=== PATIENT | female | born 1995 | race Caucasian/White ===

== ENCOUNTER 2018-05-21 08:32 | Emergency (ER) | payer MEDICAID ==
[2016-03-19 13:07] VITALS: Wt 54.0 kg
[~2018-05-21 08:32] MED LIST: CEPH-13 PO; CHOL10005 PO; HYDR25CA83 PO; MIRT-1 PO; MULT-859 PO; OMEG500C7 PO; ONDA4TAB9 PO; PROM-110 PO; VALA500T66 PO; depo shot IM
--- NOTE | 2018-05-21 08:36 | ER Report ---
History and Physical Time Seen By : 08:35 HPI/ROS CHIEF COMPLAINT: Abdominal pain HISTORY OF PRESENT ILLNESS: Patient is a 22-year-old female who is status post a laparoscopic cholecystectomy that was performed approximately 7 days ago in [place]. She states that that time she's had low-grade fevers. She is taking oxycodone for pain and Zofran for nausea. She reports today developing increased right-sided flank pain along with increased urinary frequency but no dysuria. She denies any vaginal discharge. She describes the pain as 7 out of 10 in intensity. She states she's had a history of pyelonephritis recently and was treated approximate 1 week prior to her surgery. She does state that the pain feels somewhat similar. She does report some shortness of breath secondary to pain with deep inspiration along the right flank. REVIEW OF SYSTEMS: Constitutional: Fevers, chills Eyes: No discharge. ENT: No sore throat. Cardiovascular: No chest pain, no palpitations. Respiratory: No cough, no shortness of breath. Gastrointestinal: Right lower quadrant abdominal pain; para emboli could pain, right flank pain Genitourinary: No hematuria, increased urinary frequency and pressure no dysuria Musculoskeletal: Right flank pain Skin: No rashes. Neurological: No headache. Allergies: Coded Allergies: Penicillins (Unverified Allergy, Unknown, 03/18/16) Home Meds Active Scripts Oxycodone Hcl/Acetaminophen (PERCOCET 5-325 MG TABLET) 1 Each Tablet, 1 EACH PO Q4H for PAIN, #15 TAB 0 Refills Prov:RESHMA HAAS MD 05/21/18 Ondansetron Hcl (ZOFRAN) 4 Mg Tablet, 4 MG PO Q8H for Nausea, #15 TAB 0 Refills Prov:RESHMA HAAS MD 05/21/18 Reported Medications Hydroxyzine Pamoate (VISTARIL) 25 Mg Capsule, 1-2 CAP PO Q6H Y for ANXIETY, # 120 CAPSULE 03/21/16 Cholecalciferol (Vitamin D3) (VITAMIN D3) 1,000 Unit Tablet, 1000 UNIT PO QDAY, TAB 03/21/16 Multivits,Ca,Minerals/Iron/Fa (THERA-M TABLET) 1 Each Tablet, 1 EACH PO QDAY 03/21/16 Mirtazapine (REMERON) 15 Mg Tablet, 15 MG PO QHS, #30 Take 1 hour before intention to sleep 03/21/16 [place]-3 Fatty Acids (FISH OIL) 500 Mg Capsule, 500 MG PO QDAY, CAPSULE 03/21/16 [depo shot] No Conflict Check, IM 03/19/16 Discontinued Reported Medications Cephalexin (KEFLEX) 500 Mg Capsule, 500 MG PO Q6H, #8 CAP 03/21/16 Past Medical/Surgical History Past medical history for miscarriage, history of depression with suicidal ideation and inpatient admission. Hx Smoking: Yes Smoking Status: Current: Every Day Smoker Exposure to Second Hand Smoke?: No Hx Substance Use Disorder: No Hx Alcohol Use: Yes Constitutional Vital Sign - Last 24 Hours 05/21/18 05/21/18 05/21/18 05/21/18 08:36 08:45 09:00 09:30 Temp 98.3 Pulse 72 83 81 ??? Resp 18 29 12 B/P (MAP) 105/68 108/72 (84) Pulse Ox 98 97 95 O2 Delivery Room Air 05/21/18 05/21/18 05/21/18 05/21/18 09:32 09:45 10:00 10:15 Pulse 96 88 90 Resp 17 17 18 B/P (MAP) 114/75 (88) 90/64 (73) Pulse Ox 97 84 97 05/21/18 10:30 Pulse 88 Intake and Output 05/21/18 05/21/18 05/22/18 14:59 22:59 06:59 Intake Total 1000 ml Balance 1000 ml Physical Exam General/Constitutional: Patient is awake, alert, nontoxic and in no acute respiratory distress. Head: Normocephalic and atraumatic. Eyes: Conjunctival clear, Pupils are equal and reactive to light. Extraocular muscles are intact and symmetrical. Sclera are clear and anicteric. Oropharyngeal: Mucous membranes are moist. There is no pharyngeal erythema or exudate. There are no palatal petechiae. Uvula is midline and symmetrical. Neck: Supple, no adenopathy. Cardiovascular: Heart is regular rate and rhythm without audible murmurs, rubs or gallops. Pulmonary: Lungs are clear to auscultation bilaterally. There are no wheezes, rales, or rhonchi. Chest rise is symmetrical Abdomen: Right lower quadrant abdominal pain., Right flank pain and CVA tenderness. Periumbilical pain. Incisions look clean dry and intact without evidence of erythema or discharge. Extremities: No gross deformities, No peripheral cyanosis. Able to move all 4 extremities. Neuro: Alert and oriented X3, Skin: No rashes, skin is warm dry and well perfused. Medical Decision Making Data Points Result Diagram: 05/21/18 0844 05/21/18 0844 Laboratory Hematology Test 05/21/18 08:35 05/21/18 08:44 Urine Color Yellow Urine Clarity Slightly-cloudy Urine pH 5.0 pH (4.8-9.5) Urine Specific [place] 1.020 Urine Protein Negative mg/dL (NEGATIVE) Urine Glucose (UA) Negative mg/dL (NEGATIVE) Urine Ketones Negative mg/dL (NEGATIVE) Urine Blood Negative (NEGATIVE) Urine Nitrite Negative (NEGATIVE) Urine Bilirubin Negative (NEGATIVE) Urine Urobilinogen Negative mg/dL (0.2-1.9) Urine Leukocyte Esterase Negative (NEGATIVE) Urine RBC None /HPF (0-2/HPF) Urine WBC 2 /HPF (0-5/HPF) Urine Squamous Epithelial Cells Many /LPF (</=FEW) Urine Bacteria Negative /HPF (NONE-FEW) Urine Mucus Few /HPF (NONE-FEW) Red Blood Count 4.69 M/uL (4.17-5.56) Mean Corpuscular Volume 91.7 fL (80.0-96.0) Mean Corpuscular Hemoglobin 31.6 pg (26.0-33.0) Mean Corpuscular Hemoglobin Concent 34.5 g/dL (32.0-36.0) Red Cell Distribution Width 13.3 % (11.5-14.5) Mean Platelet Volume 7.6 fL (7.2-11.1) Neutrophils (%) (Auto) 70.8 % (39.4-72.5) Lymphocytes (%) (Auto) 20.8 % (17.6-49.6) Monocytes (%) (Auto) 6.3 % (4.1-12.4) Eosinophils (%) (Auto) 1.3 % (0.4-6.7) Basophils (%) (Auto) 0.8 % (0.3-1.4) Nucleated RBC Relative Count (auto) 0.0 /100WBC Neutrophils # (Auto) 5.9 K/uL (2.0-7.4) Lymphocytes # (Auto) 1.7 K/uL (1.3-3.6) Monocytes # (Auto) 0.5 K/uL (0.3-1.0) Eosinophils # (Auto) 0.1 K/uL (0.0-0.5) Basophils # (Auto) 0.1 K/uL (0.0-0.1) Nucleated RBC Absolute Count (auto) 0.00 K/uL Sodium Level 139 mmol/L (137-145) Potassium Level 4.1 mmol/L (3.5-5.0) Chloride Level 102 mmol/L (98-107) Carbon Dioxide Level 26 mmol/L (22-31) Blood Urea Nitrogen 13 mg/dl (7-18) Creatinine 0.70 mg/dl (0.52-1.04) Glomerular Filtration Rate Calc > 60.0 Random Glucose 92 mg/dl (75-110) Calcium Level 9.5 mg/dl (8.4-10.2) Total Bilirubin 0.6 mg/dl (0.2-1.3) Aspartate Amino Transf (AST/SGOT) 48 U/L (0-35) Alanine Aminotransferase (ALT/SGPT) 94 U/L (0-56) Alkaline Phosphatase 97 U/L (0-126) Total Protein 7.8 g/dl (6.3-8.2) Albumin 4.6 g/dl (3.5-5.0) Lipase 33 U/L (23-300) Human Chorionic Gonadotropin, Qual Negative (NEGATIVE) Chemistry Test 05/21/18 08:35 05/21/18 08:44 Urine Color Yellow Urine Clarity Slightly-cloudy Urine pH 5.0 pH (4.8-9.5) Urine Specific [place] 1.020 Urine Protein Negative mg/dL (NEGATIVE) Urine Glucose (UA) Negative mg/dL (NEGATIVE) Urine Ketones Negative mg/dL (NEGATIVE) Urine Blood Negative (NEGATIVE) Urine Nitrite Negative (NEGATIVE) Urine Bilirubin Negative (NEGATIVE) Urine Urobilinogen Negative mg/dL (0.2-1.9) Urine Leukocyte Esterase Negative (NEGATIVE) Urine RBC None /HPF (0-2/HPF) Urine WBC 2 /HPF (0-5/HPF) Urine Squamous Epithelial Cells Many /LPF (</=FEW) Urine Bacteria Negative /HPF (NONE-FEW) Urine Mucus Few /HPF (NONE-FEW) White Blood Count 8.4 k/uL (4.5-11.0) Red Blood Count 4.69 M/uL (4.17-5.56) Hemoglobin 14.8 g/dL (12.0-16.0) Hematocrit 43.0 % (34.0-47.0) Mean Corpuscular Volume 91.7 fL (80.0-96.0) Mean Corpuscular Hemoglobin 31.6 pg (26.0-33.0) Mean Corpuscular Hemoglobin Concent 34.5 g/dL (32.0-36.0) Red Cell Distribution Width 13.3 % (11.5-14.5) Platelet Count 245 K/uL (150-450) Mean Platelet Volume 7.6 fL (7.2-11.1) Neutrophils (%) (Auto) 70.8 % (39.4-72.5) Lymphocytes (%) (Auto) 20.8 % (17.6-49.6) Monocytes (%) (Auto) 6.3 % (4.1-12.4) Eosinophils (%) (Auto) 1.3 % (0.4-6.7) Basophils (%) (Auto) 0.8 % (0.3-1.4) Nucleated RBC Relative Count (auto) 0.0 /100WBC Neutrophils # (Auto) 5.9 K/uL (2.0-7.4) Lymphocytes # (Auto) 1.7 K/uL (1.3-3.6) Monocytes # (Auto) 0.5 K/uL (0.3-1.0) Eosinophils # (Auto) 0.1 K/uL (0.0-0.5) Basophils # (Auto) 0.1 K/uL (0.0-0.1) Nucleated RBC Absolute Count (auto) 0.00 K/uL Glomerular Filtration Rate Calc > 60.0 Calcium Level 9.5 mg/dl (8.4-10.2) Total Bilirubin 0.6 mg/dl (0.2-1.3) Aspartate Amino Transf (AST/SGOT) 48 U/L (0-35) Alanine Aminotransferase (ALT/SGPT) 94 U/L (0-56) Alkaline Phosphatase 97 U/L (0-126) Total Protein 7.8 g/dl (6.3-8.2) Albumin 4.6 g/dl (3.5-5.0) Lipase 33 U/L (23-300) Human Chorionic Gonadotropin, Qual Negative (NEGATIVE) Urinalysis Test 05/21/18 08:35 Urine Color Yellow Urine Clarity Slightly-cloudy Urine pH 5.0 pH (4.8-9.5) Urine Specific [place] 1.020 Urine Protein Negative mg/dL (NEGATIVE) Urine Glucose (UA) Negative mg/dL (NEGATIVE) Urine Ketones Negative mg/dL (NEGATIVE) Urine Blood Negative (NEGATIVE) Urine Nitrite Negative (NEGATIVE) Urine Bilirubin Negative (NEGATIVE) Urine Urobilinogen Negative mg/dL (0.2-1.9) Urine Leukocyte Esterase Negative (NEGATIVE) Urine RBC None /HPF (0-2/HPF) Urine WBC 2 /HPF (0-5/HPF) Urine Squamous Epithelial Cells Many /LPF (</=FEW) Urine Bacteria Negative /HPF (NONE-FEW) Urine Mucus Few /HPF (NONE-FEW) EKG/Imaging Imaging FACILITY: [facility] PATIENT NAME: Alena Conti : 1995 MR: [id number] V: [id number] EXAM DATE: [id number] ORDERING PHYSICIAN: RESHMA HAAS TECHNOLOGIST: Location: [facility] Patient: Alena Conti : 1995 Visit/Account:[id number] Date of Sevice: 05/21/2018 Chest 2 views: HISTORY: Shortness of breath. Smoker. Gallbladder removed last week. COMPARISON: None. FINDINGS: Frontal and lateral chest: Cardiomediastinal silhouette is within normal limits. There is no infiltrate or pleural effusion. No pneumothorax. Pulmonary vasculature is normal. Surgical clips are present in the right upper quadrant. There is no free air identified under the hemidiaphragms. Osseous structures are unremarkable. IMPRESSION: No evidence of acute cardiopulmonary abnormality. Report Dictated By: Mary Martinez MD at 05/21/2018 9:29 AM Report E-Signed By: Mary Martinez MD at 05/21/2018 9:47 AM WSN:[id number] FACILITY: [facility] PATIENT NAME: Alena Conti : 1995 MR: [id number] V: [id number] EXAM DATE: [id number] ORDERING PHYSICIAN: RESHMA HAAS TECHNOLOGIST: Location: [facility] Patient: Alena Conti : 1995 Visit/Account:[id number] Date of Sevice: 05/21/2018 ABDOMEN/PELVIS WITH CONTRAST HISTORY: Postop cholecystectomy now with right flank and periumbilical pain. TECHNIQUE: CT abdomen and pelvis with intravenous contrast. One of the following dose optimization techniques was utilized in the performance of this exam: Automated exposure control; adjustment of the mA and/ or kV according to the patient's size; or use of an iterative reconstruction technique. Specific details can be referenced in the facility's radiology CT exam operational policy. CONTRAST: 75 mL Isovue-370 IV COMPARISON: None. FINDINGS: Visualized lung bases: Negative. Hepatobiliary: Gallbladder surgically absent. Cholecystectomy clips and small volume fluid within gallbladder fossa. No organized fluid collection. Mild central intrahepatic and extrahepatic biliary dilatation, tapering distally to the level of papilla and likely physiologic postcholecystectomy. Spleen: Negative. Adrenals: Negative. Pancreas: Negative. Kidneys/: 5.2 cm low attenuating cyst right ovary. GI: No obstruction, wall thickening or surrounding inflammation. Appendix well- visualized and appears normal. Vessels/spaces/nodes: Trace free pelvic fluid, likely physiologic or secondary to partial right ovarian cyst rupture. Bones/soft tissues: Subtle foci of subcutaneous fat stranding within right upper quadrant. Fat stranding and likely very small volume subcutaneous fluid at umbilicus but no gross organized fluid collection and no hernia. IMPRESSION: 1. Sequela of recent cholecystectomy with small volume free fluid at gallbladder fossa but no organized fluid collection. 2. Sequela likely laparoscopic port sites right upper quadrant and umbilicus with fat stranding and at the umbilicus a very small volume of free fluid but no organized fluid collection or hernia. 3. 5.2 cm cyst right ovary. Given its size and according to [employer] guidelines regarding incidental ovarian cysts, 6-12 week ultrasound follow-up is recommended to ensure resolution. Report Dictated By: Jeff Segovia MD at 05/21/2018 9:56 AM Report E-Signed By: Jeff Segovia MD at 05/21/2018 10:08 AM WSN:[id number] FACILITY: [facility] PATIENT NAME: Alena Conti : 1995 MR: [id number] V: [id number] EXAM DATE: ORDERING PHYSICIAN: RESHMA HAAS TECHNOLOGIST: Location: [facility] Patient: Alena Conti : 1995 Visit/Account:[id number] Date of Sevice: 05/21/2018 Pelvic ultrasound HISTORY: right ovarian cyst COMPARISON: CT abdomen and pelvis with contrast dated 05/21/2018. Findings: Standard transabdominal pelvic ultrasound with color flow and spectral analysis. Uterus: Uterus measurement: 8.0 x 2.7 x 4.4 cm Endometrium measurement: 8 mm The endometrium and myometrium are homogeneous with no suspicious mass or vascular abnormality identified. Adnexa: Right ovary: 4.6 x 5.2 x 4.1 cm Left ovary: The left ovary is not seen. 4.0 x 3.8 x 4.3 cm hemorrhagic cyst in the right ovary. Normal right ovarian blood flow. Free fluid: None Urinary bladder: Negative. IMPRESSION: 1. 4.0 x 3.8 x 4.3 cm hemorrhagic cyst in the right ovary. 2. The left ovary is not seen. 3. Otherwise unremarkable pelvic ultrasound. Report Dictated By: Jose Carvalho MD at 05/21/2018 11:54 AM Report E-Signed By: Jose Carvalho MD at 05/21/2018 11:59 AM WSN:[id number] Course/Re-evaluation ED Course 05/21/2018 10:24:[address] scan of the abdomen and pelvis shows postsurgical changes from cholecystectomy. There is also a 5.2 cm right ovarian cyst. Plan at this time will be ultrasound to rule out ovarian torsion Decision to Disposition Date: May 21, 2018 Decision to Disposition Time: 12:08 Depart Departure Latest Vital Signs Vital Signs Date Time Temp Pulse Resp B/P (MAP) Pulse Ox O2 Delivery O2 Flow Rate FiO2 05/21/18 10:30 88 05/21/18 10:15 18 97 05/21/18 10:00 90/64 (73) 05/21/18 08:36 98.3 Room Air Impression: Primary Impression: Hemorrhagic cyst of right ovary Condition: Improved Disposition: HOME OR SELF-CARE New Scripts Ondansetron Hcl (ZOFRAN) 4 Mg Tablet 4 MG PO Q8H for Nausea, #15 TAB 0 Refills Prov: RESHMA HAAS MD 05/21/18 Oxycodone Hcl/Acetaminophen (PERCOCET 5-325 MG TABLET) 1 Each Tablet 1 EACH PO Q4H for PAIN, #15 TAB 0 Refills Prov: RESHMA HAAS MD 05/21/18 Patient Instructions: Ovarian Cyst (DC) RESHMA HAAS MD May 21, 2018 08:35
[2018-05-21] MEDS ORDERED: NS(*) 0.9% 1000 ML BAG 1,000 ML IV ONE (08:52)
[2018-05-21] MEDS ORDERED: MORPHINE 4 MG/ML SDV IVP ONE (08:55)
[2018-05-21] MEDS ORDERED: ONDANSETRON 4 MG/2 ML VIAL IVP ONE (08:55)
[2018-05-21 09:00] LABS: PLATELET COUNT, AUTOMATED 245 K/uL (150-450)
[2018-05-21] MEDS ORDERED: IOPAMIDOL 76% 75 ML INFUS BTL 75 ML ONE (09:15)
--- NOTE | 2018-05-21 09:49 | RADIOLOGY IMAGING REPORT ---
FACILITY: [facility] [place] PATIENT NAME: Alena Conti : 1995 MR: [id number] V: [id number] EXAM DATE: ORDERING PHYSICIAN: RESHMA HAAS TECHNOLOGIST: Location: [facility] Patient: Alena Conti : 1995 Visit/Account:[id number] Date of Sevice: 05/21/2018 Chest 2 views: HISTORY: Shortness of breath. Smoker. Gallbladder removed last week. COMPARISON: None. FINDINGS: Frontal and lateral chest: Cardiomediastinal silhouette is within normal limits. There is n o infiltrate or pleural effusion. No pneumothorax. Pulmonary vasculature is normal. Surgical clips are present in the right upper quadrant. There is no free air identified under the hem idiaphragms. Osseous structures are unremarkable. IMPRESSION: No evidence of acute cardiopulmonary abnormality. Report Dictated By: Mary Martinez MD at 05/21/2018 9:29 AM Report E-Signed By: Mary Martinez MD at 05/21/2018 9:47 AM WSN:[id number]
--- NOTE | 2018-05-21 10:11 | RADIOLOGY IMAGING REPORT ---
FACILITY: [facility] PATIENT NAME: Alena Conti : 1995 MR: [id number] V: [id number] EXAM DATE: ORDERING PHYSICIAN: RESHMA HAAS TECHNOLOGIST: Location: [facility] [place] Patient: Alena Conti : 1995 Visit/Account:[id number] Date of Sevice: 05/21/2018 ABDOMEN/PELVIS WITH CONTRAST HISTORY: Postop cholecystectomy now with right flank and periumbilical pain. TECHNIQUE: CT abdomen and pelvis with intravenous contrast. One of the following dose optimization techniques was utilized in the performance of this exam: Autom ated exposure control; adjustment of the mA and/or kV according to the patient's size; or use of an i terative reconstruction technique. Specific details can be referenced in the facility's radiology C T exam operational policy. CONTRAST: 75 mL Isovue-370 IV COMPARISON: None. FINDINGS: Visualized lung bases: Negative. Hepatobiliary: Gallbladder surgically absent. Cholecystectomy clips and small volume fluid within ga llbladder fossa. No organized fluid collection. Mild central intrahepatic and extrahepatic biliary di latation, tapering distally to the level of papilla and likely physiologic postcholecystectomy. Spleen: Negative. Adrenals: Negative. Pancreas: Negative. Kidneys/: 5.2 cm low attenuating cyst right ovary. GI: No obstruction, wall thickening or surrounding inflammation. Appendix well-visualized and appear s normal. Vessels/spaces/nodes: Trace free pelvic fluid, likely physiologic or secondary to partial right ovar jose cyst rupture. Bones/soft tissues: Subtle foci of subcutaneous fat stranding within right upper quadrant. Fat stran ding and likely very small volume subcutaneous fluid at umbilicus but no gross organized fluid collec tion and no hernia. IMPRESSION: 1. Sequela of recent cholecystectomy with small volume free fluid at gallbladder fossa but no organiz ed fluid collection. 2. Sequela likely laparoscopic port sites right upper quadrant and umbilicus with fat stranding and a t the umbilicus a very small volume of free fluid but no organized fluid collection or hernia. 3. 5.2 cm cyst right ovary. Given its size and according to [employer] guidelines regarding incidental ovarian cysts, 6-12 week ultrasound follow-up is recommended to ensure resolutio n. Report Dictated By: Jeff Segovia MD at 05/21/2018 9:56 AM Report E-Signed By: Jeff Segovia MD at 05/21/2018 10:08 AM WSN:[id number]
[2018-05-21 12:00] VITALS: BP 105/77
--- NOTE | 2018-05-21 12:03 | RADIOLOGY IMAGING REPORT ---
FACILITY: PATIENT NAME: Alena Conti : 1995 MR: [id number] V: [id number] EXAM DATE: ORDERING PHYSICIAN: RESHMA HAAS TECHNOLOGIST: Location: [facility] [place] Patient: Alena Conti : 1995 Visit/Account:[id number] Date of Sevice: 05/21/2018 Pelvic ultrasound HISTORY: right ovarian cyst COMPARISON: CT abdomen and pelvis with contrast dated 05/21/2018. Findings: Standard transabdominal pelvic ultrasound with color flow and spectral analysis. Uterus: Uterus measurement: 8.0 x 2.7 x 4.4 cm Endometrium measurement: 8 mm The endometrium and myometrium are homogeneous with no suspicious mass or vascular abnormality identi fied. Adnexa: Right ovary: 4.6 x 5.2 x 4.1 cm Left ovary: The left ovary is not seen. 4.0 x 3.8 x 4.3 cm hemorrhagic cyst in the right ovary. Normal right ovarian blood flow. Free fluid: None Urinary bladder: Negative. IMPRESSION: 1. 4.0 x 3.8 x 4.3 cm hemorrhagic cyst in the right ovary. 2. The left ovary is not seen. 3. Otherwise unremarkable pelvic ultrasound. Report Dictated By: Jose Carvalho MD at 05/21/2018 11:54 AM Report E-Signed By: Jose Carvalho MD at 05/21/2018 11:59 AM WSN:[id number]
[2018-05-21] MEDS ORDERED: OXYC-865 PO ×2 (12:09→12:14)
[2018-05-21] MEDS ORDERED: ONDA4TAB97 PO ×2 (12:09→12:14)
== END 2018-05-21 12:19 | disposition home or self-care (01) ==
LOC: ER 08:35
DX: N83.201 Unspecified ovarian cyst, right side (principal)
CPT/HCPCS: 71046; 74177; 76857; 81001; 83690; 84703; 85025; 87088; 96361; 96374; 96375; 99284; J2270; J2405; J7030; Q9967; 82040; 82247; 82310; 82374; 82435; 82565; 82947; 84075; 84132; 84155; 84295; 84450; 84460; 84520

== ENCOUNTER 2019-04-14 11:14 | Emergency (ER) | payer MEDICAID ==
[2016-03-19 13:07] VITALS: Wt 63.5 kg
[~2019-04-14 11:14] MED LIST changes: +ONDA4TAB97 PO; +OXYC-865 PO
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
[2019-04-14 12:00] VITALS: BP 107/80
== END 2019-04-14 12:31 | disposition home or self-care (01) ==
LOC: ER 11:19
DX: R10.9 Unspecified abdominal pain (principal); M54.5 Low back pain
CPT/HCPCS: 81001; 87088; 99282